=== PATIENT | female | born 1990 | race Caucasian/White ===

== ENCOUNTER 2022-12-24 11:00 | Outpatient (RCR) | payer OTHER, MEDICARE, SELFPAY | END 2023-01-29 08:03 | disposition home or self-care (01) | LOC: HO.PT 11:00 | PROVIDERS: PCP Family Medicine; Visit Provider Urology | DX: M99.05 Segmental and somatic dysfunction of pelvic region (principal) | CPT/HCPCS: 97110; 97112; 97140; 97162 ==